=== PATIENT | female | born 1950 | race African-American/Black ===

== ENCOUNTER 2018-07-04 09:07 | Outpatient (CLI) | payer MEDICARE ==
--- NOTE | 2018-07-20 10:06 | MMO ---
Bilateral MAMMO Bilat Screen [facility]. CLINICAL HISTORY: Patient is 68 years old and is seen for screening. The patient has no family history of breast cancer. The patient has a history of malignant (generic) in the left breast at age 51. VIEWS: The views performed were: bilateral craniocaudal with tomosynthesis and bilateral mediolateral oblique with tomosynthesis. FILMS COMPARED: The present examination has been compared to prior imaging studies performed at [facility] on 03/15/2001 and 05/25/2008, and at [facility] on 12/04/2015. MAMMOGRAM FINDINGS: There are scattered fibroglandular densities. There are stable benign appearing calcifications seen in both breasts. There are also vascular calcifications. There are no suspicious masses, suspicious calcifications, or new areas of architectural distortion. IMPRESSION: THERE IS NO MAMMOGRAPHIC EVIDENCE OF MALIGNANCY. A ROUTINE FOLLOW-UP MAMMOGRAM IN 1 YEAR IS RECOMMENDED. THE RESULTS OF THIS EXAM WERE SENT TO THE PATIENT. ACR BI-RADS Category 2 - Benign finding MAMMOGRAPHY NOTE: 1. A negative mammogram report should not delay a biopsy if a dominant of clinically suspicious mass is present. 2. Approximately 10% to 15% of breast cancers are not detected by mammography. 3. Adenosis and dense breasts may obscure an underlying neoplasm.
== END 2018-07-04 09:08 | disposition home or self-care (01) ==
LOC: BICMAMMO 09:07
PROVIDERS: ATTEND Internal Medicine
DX: Z12.31 Encounter for screening mammogram for malignant neoplasm of breast (principal); Z85.3 Personal history of malignant neoplasm of breast
CPT/HCPCS: 77063; 77067

== ENCOUNTER 2018-12-06 10:02 | Outpatient (CLI) | payer MEDICARE ==
--- NOTE | 2018-12-06 11:20 | BD ---
DEXA DENSITOMETRY: INDICATIONS: Postmenopausal screening. FINDINGS: LUMBAR SPINE BMD (g/cm2) T-SCORE L1 1.117 1.2 L2 1.047 0.2 L3 1.206 1.1 L4 1.291 2.1 TOTAL 1.161 1.0 FEMORAL NECK 0.746 -0.9 TOTAL 1.046 0.9 IMPRESSION: The bone mineral density of the lumbar spine and femoral neck are both within the normal range. POS: SYDNEE
== END 2018-12-06 10:03 | disposition home or self-care (01) ==
LOC: BICMAMMO 10:02
PROVIDERS: ATTEND Internal Medicine
DX: Z13.820 Encounter for screening for osteoporosis (principal); Z78.0 Asymptomatic menopausal state
CPT/HCPCS: 77080

== ENCOUNTER 2019-04-14 09:04 | Outpatient (CLI) | payer MEDICARE, MEDICAID ==
--- NOTE | 2019-04-14 09:27 | RAD ---
FIVE VIEWS CERVICAL SPINE: HISTORY: Cervical spinal stenosis. Neck pain. FINDINGS: On the AP projection, there appears to be calcification of the left and right carotid artery. There i s suggestion of right carotid endarterectomy change. No malalignment. Suboptimal evaluation of the odontoid process and the lateral masses of C1 and C2 on the open mouth p rojection. Predental space is normal. There is no prevertebral soft tissue swelling. In the neutral position, th ere is moderate degenerative disc disease at C4-C5, C5-C6 and C6-C7. Loss of disc space height and osteophyte formation are identified. Limited evaluation of the cervicothoracic junction. There may be moderate. Change. Cervical spine vertebral body heights are maintained. No fracture. Straightening of normal cervical lordosis. Spondylolisthesis: C2-C3: Less than 1 mm of retrolisthesis of C3 upon C4 in the neutral position. Retrolisthesis resolve s upon extension and flexion. C3-C4: 1 mm of retrolisthesis of C3 upon C4 in the neutral position. Upon extension and flexion, retr olisthesis resolves. IMPRESSION: Degenerative changes of the cervical spine as above. Transcribed Date/Time: 04/14/2019 9:49 AM
--- NOTE | 2019-04-14 10:17 | MRI ---
MRI of thecervical spine: 04/14/2019 COMPARISON:None available HISTORY:Cervical stenosis, neck pain TECHNIQUE: Multiplanar multisequence MR imaging of thecervical spine without contrast Findings:The sagittal STIR imaging is limited by motion and demonstrates no focal area of osseous mar row edema. The sagittal T1 and T2-weighted imaging is limited by motion as well. There is no significant anterol isthesis or retrolisthesis noted within the cervical spine. No prevertebral soft tissue abnormality. The cervicothoracic and craniocervical junctions appear intact. Axial imaging is limited by motion, limiting detailed assessment for central canal and/or neural fora giovani stenosis. C2-3: No significant central canal or neural foraminal stenosis C3-4: There is a small annular tear in the right paracentral region. There is disc bulge with a small associated right paracentral disc protrusion partially effacing the ventral thecal sac and leading to a mild degree of central canal stenosis. No significant neural foraminal stenosis. C4-5: There is disc space narrowing with disc desiccation, anterior osteophyte formation, and mild di sc bulge. This partially effaces the ventral thecal sac and leads to a mild degree of central canal stenosis. Facet and uncovertebral osteophyte formation on the left causes at least mild left neural f oraminal stenosis. C5-6: There is disc space narrowing and disc desiccation with disc bulge and mild central canal steno sis. Bilateral facet and uncovertebral osteophyte formation noted, left greater than right. There is a questionable small foraminal disc protrusion with associated osteophyte on the left. However, a degree of this may be artifactual in nature on the basis of motion. Mild right and moderate left neural foraminal stenosis suspected. C6-7: There is disc space narrowing with disc desiccation and disc bulge causing mild central canal s tenosis. Facet and uncovertebral osteophyte formation as well as disc bulge causes a mild to moderate degree of bilateral neural foraminal stenosis, left greater than right. C7-T1: There is disc space narrowing with disc desiccation and disc bulge causing a mild degree of ce ntral canal stenosis. Disc bulge as well as facet and uncovertebral osteophyte formation leads to severe bilateral neural foraminal stenosis. No focal area of abnormal signal intensity is identified within the cervical cord. IMPRESSION:Motion limited examination demonstrating multilevel cervical spine degenerative change as described above. Most significant finding on this examination appears to be bilateral neural foraminal stenosis at the C7-T1 level.
== END 2019-04-14 09:05 | disposition home or self-care (01) ==
LOC: TBSIIMAG 09:04
PROVIDERS: ATTEND Neurological Surgery
DX: M48.02 Spinal stenosis, cervical region (principal); M54.2 Cervicalgia; M47.812 Spondylosis without myelopathy or radiculopathy, cervical region; M48.03 Spinal stenosis, cervicothoracic region
CPT/HCPCS: 72050; 72141

== ENCOUNTER 2019-06-15 12:28 | Outpatient (CLI) | payer MEDICARE, MEDICAID ==
[~2019-06-15 12:28] MED LIST: Iopamidol 370 76% 100 ML VIAL ONE
--- NOTE | 2019-06-15 13:37 | CT ---
Exam: CT angiogram of the neck HISTORY: Cervical stenosis noted on previous MRI. Cervical radicular pain TECHNIQUE: CT angiogram the neck is performed in the axial plane. Three-dimensional reformatted image s are submitted for interpretation FINDINGS: Visualized brain parenchyma and orbits have appropriate attenuation Adequate aeration visualized paranasal sinuses and mastoid air cells Mild fullness of the nasopharynx. No obvious masses in the oral cavity. Midline fatty raphae of the t ongue is preserved. There is mild fullness of the level of the lingual tonsils. Asymmetric soft tissue attenuation at the level of the false vocal cords with questionable masslike appearance measur ing 1.2 x 1.9 cm. There is associated narrowing of the airway. Salivary glands: Symmetric attenuation of the parotid glands. Surgically absent right submandibular g land. Appropriate attenuation of the left subarticular Thyroid gland: Incompletely evaluated 1.3 x 1.4 cm right thyroid lobe hypodensity Lymphadenopathy: No evidence of lymphadenopathy in the neck. Cervical spine: Vertebral body heights are maintained. There is no fracture. C2-C3: No significant central canal stenosis or significant neural foraminal narrowing C3-C4: No significant central canal stenosis or significant neural foraminal narrowing C4-C5: Anterior osteophyte formation. Broad-based discussed by complex with mild to moderate central canal stenosis. Moderate bilateral neural foraminal narrowing. C5-C6: Broad-based disc osteophyte complex with mild central canal stenosis. Moderate bilateral neura l foraminal narrowing due to uncovertebral hypertrophy C6-C7: No high-grade central canal stenosis. Moderate bilateral neural foraminal narrowing due to unc overtebral hypertrophy C7-T1: No high-grade central canal stenosis. Moderate to severe bilateral neural foraminal narrowing due to uncovertebral hypertrophy CT ANGIOGRAM: There is atherosclerosis of the visualized thoracic aorta Right carotid: There is appropriate enhancement and luminal diameter the origin of the right carotid artery. There is calcified plaque in the innominate artery without significant stenosis. There is appropriate enhancement and luminal diameter the common carotid artery. There is calcified plaque wit hout significant stenosis of the carotid bifurcation. There is appropriate enhancement and luminal diameter of the internal carotid artery. Left carotid: Appropriate enhancement and luminal diameter the origin of the left carotid artery. Lef t common carotid artery has appropriate enhancement and luminal diameter. There is calcified plaque with mild narrowing of the left carotid bifurcation. There is appropriate enhancement and luminal janna meter of the internal carotid artery. Bilateral subclavian arteries are patent. There is appropriate enhancement and luminal diameter of the cervical vertebral arteries. Right verte bral artery is dominant. Note, the left vertebral artery originates directly from the aortic arch IMPRESSION: 1. No evidence of significant stenosis based upon NASCET criteria. Calcified plaque in bilateral zaragoza tid bifurcations. 2. Soft tissue fullness at the level of the false vocal cords. Additional soft tissue fullness is not ed at the lingual tonsils and nasopharynx. Direct visualization is recommended CODE T Transcribed Date/Time: 06/15/2019 1:43 PM
== END 2019-06-15 12:29 | disposition home or self-care (01) ==
LOC: TBSIIMAG 12:28
PROVIDERS: ATTEND Surgery
DX: M54.12 Radiculopathy, cervical region (principal); I65.23 Occlusion and stenosis of bilateral carotid arteries
CPT/HCPCS: 70498; 82565; Q9967

== ENCOUNTER 2020-02-28 10:40 | Outpatient (CLI) | payer MEDICARE, MEDICAID ==
--- NOTE | 2020-02-28 13:18 | MMO ---
Bilateral MAMMO Bilat Screen [facility]. CLINICAL HISTORY: Patient is 69 years old and is seen for screening. The patient has no family history of breast cancer. The patient has a history of malignant (generic) in the left breast at age 51. VIEWS: The views performed were: bilateral craniocaudal with tomosynthesis and bilateral mediolateral oblique with tomosynthesis. FILMS COMPARED: The present examination has been compared to prior imaging studies performed at [facility] on 03/15/2001, 05/25/2008 and 07/04/2018, and at [facility] on 12/04/2015. This study has been interpreted with the assistance of computer-aided detection. MAMMOGRAM FINDINGS: There are scattered fibroglandular densities. Benign calcifications are noted bilaterally. There are stable left post-operative changes. There are no suspicious masses, suspicious calcifications, or new areas of architectural distortion. IMPRESSION: THERE IS NO MAMMOGRAPHIC EVIDENCE OF MALIGNANCY. A ROUTINE FOLLOW-UP MAMMOGRAM IN 1 YEAR IS RECOMMENDED. THE RESULTS OF THIS EXAM WERE SENT TO THE PATIENT. ACR BI-RADS Category 2 - Benign finding MAMMOGRAPHY NOTE: 1. A negative mammogram report should not delay a biopsy if a dominant of clinically suspicious mass is present. 2. Approximately 10% to 15% of breast cancers are not detected by mammography. 3. Adenosis and dense breasts may obscure an underlying neoplasm. Reported by: DYLON ROJAS MD Electonically Signed: [id number]
== END 2020-02-28 10:41 | disposition home or self-care (01) ==
LOC: BICMAMMO 10:40
PROVIDERS: ATTEND Nurse Practitioner Adult Health
DX: Z12.31 Encounter for screening mammogram for malignant neoplasm of breast (principal); Z85.3 Personal history of malignant neoplasm of breast
CPT/HCPCS: 77063; 77067

== ENCOUNTER 2020-02-28 11:22 | Outpatient (CLI) | payer MEDICARE, MEDICAID ==
--- NOTE | 2020-02-28 11:45 | CT ---
CT pulmonary lung scan without IV contrast INDICATION: Lung cancer screening protocol; current smoker of 30+ years; less than 1 pack per daypers onal history of smoking COMPARISON: None FINDINGS: LUNGS: Nodules\mass: No suspicious nodule demonstrated. Emphysema: [id number] scattered centrilobular emphysema Additional findings: There are coronary artery and thoracic aortic calcifications. There are postsurg ical change involving the left breast and left axilla. Mediastinum: No lymphadenopathy. Upper abdomen: There is a 1.6 cm cyst within the right hepatic lobe. Osseous structures: There is scattered degenerative and osteoarthritic change present.. IMPRESSION: Lung-RADS Category 1: Negative- Continue annual screening with LDCT in 12 months. Category S: None. Category C: Not applicable.
== END 2020-02-28 11:23 | disposition home or self-care (01) ==
LOC: BICCT 11:22
PROVIDERS: ATTEND Nurse Practitioner Adult Health
DX: Z12.2 Encounter for screening for malignant neoplasm of respiratory organs (principal); F17.210 Nicotine dependence, cigarettes, uncomplicated
CPT/HCPCS: G0297

== ENCOUNTER 2020-04-26 12:34 | Outpatient (CLI) | payer MEDICARE, MEDICAID ==
[2020-04-26 16:44] LABS: Hemoglobin 14.6 g/dL (12.0-15.5); Mean Corpuscular Hemoglobin 30.6 pg (27.0-33.0); Mean Corpuscular Volume 92.9 fl (81.6-98.3); Mean Platelet Volume 9.8 fl (7.4-10.4); Platelet Count 273 10x3/uL (150-450); RBC Distribution Width 13.4 % (11.5-14.5); Red Blood Cell (RBC) Count 4.77 10x6/uL (3.90-5.03); White Blood Cell (WBC) Count 4.6 10x3/uL (3.5-10.5)
[2020-04-26 17:10] LABS: INR-International Normal Ratio 0.9; PTT 27.9 sec (22.0-33.0); Prothrombin Time 9.8 sec (9.5-12.1)
[2020-04-26 17:13] LABS: Anion Gap 9 mmol/L (10-20); BUN (Urea Nitrogen) 10 mg/dL (9.8-20.1); Calc. Creatinine Clearance 0 mL/min (70-130); Calcium 9.5 mg/dL (7.8-10.44); Carbon Dioxide 29 mmol/L (23-31); Chloride 105 mmol/L (98-107); Glucose 107 mg/dL (80-115); Potassium 4.1 mmol/L (3.5-5.1); Sodium 139 mmol/L (136-145)
[2020-04-27 01:47] LABS: SARS-CoV-2 PCR by NAA Not Detected (NotDetected)
== END 2020-04-26 12:35 | disposition home or self-care (01) ==
LOC: LABBT 12:34
PROVIDERS: ATTEND Surgery
DX: Z01.818 Encounter for other preprocedural examination (principal); M54.12 Radiculopathy, cervical region; M48.02 Spinal stenosis, cervical region; Z20.822 Contact with and (suspected) exposure to COVID-19
CPT/HCPCS: 80048; 85027; 85610; 85730; 86850; 86900; 86901; U0003; U0005; 87635; 93005; 93010

== ENCOUNTER 2020-05-01 05:51 | Day surgery (SDC) | payer MEDICARE, MEDICAID ==
[2020-04-30 09:14] VITALS: BMI 34.0
[2020-05-01] MEDS ORDERED: Fentanyl 100 MCG/2 ML VIAL ONE ×5 (06:09→14:18)
[2020-05-01] MEDS ORDERED: Ketamine 50 MG/ML (10ML VIAL) ONE (06:09)
[2020-05-01] MEDS ORDERED: Dexmedetomidine 200 MCG/2 ML VIAL ONE (06:10)
[2020-05-01] MEDS ORDERED: Thrombin 5000 UNITS/5 ML VIAL ONE (06:34)
[2020-05-01] MEDS ORDERED: Levofloxacin 500 mg/D5W 100 ml Premix Bag ONE (07:29)
[2020-05-01] MEDS ORDERED: Clindamycin/D5W 900 mg/50 ml Premix Bag ONE (07:29)
[2020-05-01] MEDS ORDERED: Midazolam HCl 2 mg/2 ml Vial ONE (07:34)
[2020-05-01] MEDS ORDERED: Ondansetron PF 4 MG/2 ML Vial ONE (07:56)
[2020-05-01] MEDS ORDERED: Rocuronium Bromide 10 MG/ML (10ML VIAL) ONE (07:56)
[2020-05-01] MEDS ORDERED: Dexamethasone 20 MG/5 ML VIAL ONE (07:56)
[2020-05-01] MEDS ORDERED: ePHEDrine 50 MG/ML VIAL ONE (07:56)
[2020-05-01] MEDS ORDERED: Lidocaine 1% PF 5 ML VIAL ONE (07:56)
[2020-05-01] MEDS ORDERED: Glycopyrrolate 0.2 MG/ML 5 ML SYRINGE ONE (07:56)
[2020-05-01] MEDS ORDERED: PROPOFOL 200 MG/20 ML VIAL ONE (07:56)
[2020-05-01] MEDS ORDERED: Milk Of Magnesia 30 ML UDCUP PO PRN (10:05)
[2020-05-01] MEDS ORDERED: tiZANidine HCl 4 MG TAB PO PRN (10:05)
[2020-05-01] MEDS ORDERED: Mag-Al 1200 mg/1200 mg/30 ML UDCUP PO PRN (10:05)
[2020-05-01] MEDS ORDERED: Bisacodyl 10 MG SUPP PR PRN (10:05)
[2020-05-01] MEDS ORDERED: Acetaminophen 325 MG TAB PO PRN (10:05)
[2020-05-01] MEDS ORDERED: traMADol HCl 50 MG TAB PO PRN (10:05)
[2020-05-01] MEDS ORDERED: hydrALAZINE 20 MG/ML VIAL SLOW IVP PRN (10:08)
[2020-05-01] MEDS ORDERED: hydrALAZINE 20 MG/ML VIAL ONE (10:31)
[2020-05-01] MEDS: Sodium Chloride 0.9% 1,000 ML IV SCH ×2 (15:41→23:44)
[2020-05-01] MEDS: HYDROcodone/Acetaminophen 7.5/325 mg Tablet PO PRN (15:41)
[2020-05-01] MEDS ORDERED: Clindamycin/D5W 900 MG in Premix Bag 1 BAG IVPB SCH (16:00)
[2020-05-01] MEDS: Morphine 2 MG/ML VIAL SLOW IVP PRN (16:01)
[2020-05-01] MEDS: Acetaminophen/Codeine 30-300mg Tablet PO PRN (20:59)
[2020-05-01] MEDS: Clindamycin/D5W 900 MG in Premix Bag 1 BAG IVPB SCH (23:43)
[2020-05-02] MEDS: HYDROcodone/Acetaminophen 7.5/325 mg Tablet PO PRN ×2 (04:10→10:53)
[2020-05-02] MEDS: Clindamycin/D5W 900 MG in Premix Bag 1 BAG IVPB SCH (08:07)
[2020-05-02] MEDS: Acetaminophen/Codeine 30-300mg Tablet PO PRN (08:08)
[2020-05-02] MEDS ORDERED: Rosuvastatin 20 MG TAB PO SCH (09:00)
[2020-05-02] MEDS ORDERED: FLU VACC QS2020-21(65YR UP)/PF 240 MCG/0.7 ML SYRINGE IM ONE (09:00)
[2020-05-02] MEDS ORDERED: Ezetimibe 10 MG TAB PO SCH (09:00)
[2020-05-02] MEDS ORDERED: Lisinopril 20 MG TAB PO SCH (09:00)
[2020-05-02 11:24] VITALS: BP 161/92; TEMP 98.2
[2020-05-02] MEDS: Morphine 2 MG/ML VIAL SLOW IVP PRN (12:28)
[2020-05-02] MEDS: Sodium Chloride 0.9% 1,000 ML IV SCH (15:01)
== END 2020-05-02 13:04 | disposition home or self-care (01) ==
LOC: SDC 05:51 → SURG B 10:05 → SDC 05-02 13:04
PROVIDERS: ATTEND Surgery
PROC: 0RG10A0 Fusion of Cervical Vertebral Joint with Interbody Fusion Device, Anterior Approach, Anterior Column, Open Approach (ICD-10-PCS; principal; 2020-05-01)
PROC: 0RG40A0 Fusion of Cervicothoracic Vertebral Joint with Interbody Fusion Device, Anterior Approach, Anterior Column, Open Approach (ICD-10-PCS; 2020-05-01)
PROC: 0RT30ZZ Resection of Cervical Vertebral Disc, Open Approach (ICD-10-PCS; 2020-05-01)
PROC: 0RT50ZZ Resection of Cervicothoracic Vertebral Disc, Open Approach (ICD-10-PCS; 2020-05-01)
DX: M48.02 Spinal stenosis, cervical region (principal); M54.12 Radiculopathy, cervical region; I10 Essential (primary) hypertension; E78.5 Hyperlipidemia, unspecified; Z79.899 Other long term (current) drug therapy
CPT/HCPCS: 20930; 20936; 22551; 22552; 22853 ×2; 76000; 86850; 86900; 86901; C1713 ×4; C1776; J2270 ×2; 36415; J0360; J0690; J1100; J1956; J2250; J2405; J2704; J3010; J3490; L0174

== ENCOUNTER 2020-06-18 09:04 | Outpatient (CLI) | payer MEDICARE, MEDICAID | END 2020-06-18 09:05 | disposition home or self-care (01) | LOC: TBSIIMAG 09:04 | PROVIDERS: ATTEND Physician Assistant | DX: M50.10 Cervical disc disorder with radiculopathy, unspecified cervical region (principal); M48.02 Spinal stenosis, cervical region; M47.22 Other spondylosis with radiculopathy, cervical region; Z98.1 Arthrodesis status | CPT/HCPCS: 72040 ==

== ENCOUNTER 2021-02-28 09:15 | Outpatient (CLI) | payer MEDICARE, MEDICAID | END 2021-02-28 09:16 | disposition home or self-care (01) | LOC: BICMAMMO 09:15 | PROVIDERS: ATTEND Family Medicine | DX: Z12.31 Encounter for screening mammogram for malignant neoplasm of breast (principal); Z13.820 Encounter for screening for osteoporosis; Z78.0 Asymptomatic menopausal state; Z98.890 Other specified postprocedural states; Z85.3 Personal history of malignant neoplasm of breast | CPT/HCPCS: 77063; 77067; 77080 ==

== ENCOUNTER 2021-09-27 18:06 | Emergency (ER) | payer OTHER ==
[~2021-09-27 18:06] MED LIST changes: -Iopamidol 370 76% 100 ML VIAL ONE; +Iopamidol-370 76% 500 ML 1 ML ONE
[2021-09-27 19:04] LABS: Hemoglobin 15.2 g/dL (12.0-16.0); Mean Corpuscular HGB CONC 33.4 g/dL (32.0-36.0); Mean Corpuscular Hemoglobin 31.1 pg (27.0-31.0); Mean Corpuscular Volume 93.1 fL (78.0-98.0); Mean Platelet Volume 7.1 fL (7.4-10.4); Platelet Count 181 thou/uL (130-400); RBC Distribution Width 12.8 % (11.5-14.5); Red Blood Cell (RBC) Count 4.88 mill/uL (4.20-5.40); White Blood Cell (WBC) Count 4.3 thou/uL (4.8-10.8)
[2021-09-27 19:26] LABS: ALT (SGPT) 51 U/L (8-55); AST (SGOT) 73 U/L (5-34); Albumin 4.3 g/dL (3.4-4.8); Alkaline Phosphatase 78 U/L (40-110); Anion Gap 16 mmol/L (10-20); BUN (Urea Nitrogen) 13 mg/dL (9.8-20.1); Band 3 % (5-11); Bilirubin, Total 0.5 mg/dL (0.2-1.2); CK (CPK) 318 U/L (29-168); Calc. Creatinine Clearance 0 mL/min (70-130); Calcium 9.2 mg/dL (7.8-10.44); Carbon Dioxide 22 mmol/L (23-31); Chloride 99 mmol/L (98-107); Estimated GFR 58; Globulin 3.8 g/dL (2.4-3.5); Glucose 98 mg/dL (80-115); Lymphocytes 12 % (21-51); MDiff Complete? YES; Monocytes 15 % (0-10); Neutrophil 58 % (42-75); Platelet Morphology Comment Appears Adequate; Polychromasia SLIGHT = 2-3 cells (100X) (0-2/hpf); Potassium 3.8 mmol/L (3.5-5.1); Protein, Total 8.1 g/dL (5.8-8.1); Reactive Lymphocytes 12 % (0-10); Sodium 133 mmol/L (136-145)
[2021-09-27] MEDS ORDERED: Acetaminophen 500 MG TAB ONE (19:40)
[2021-09-27 23:28] LABS: SARS-CoV-2 NAA Rapid Test DETECTED (NotDetected)
== END 2021-09-27 22:30 | disposition home or self-care (01) ==
LOC: ERS 18:06
DX: U07.1 COVID-19 (principal); K76.89 Other specified diseases of liver; I11.9 Hypertensive heart disease without heart failure; E78.00 Pure hypercholesterolemia, unspecified; F17.210 Nicotine dependence, cigarettes, uncomplicated; Z79.899 Other long term (current) drug therapy
CPT/HCPCS: 71045; 71275; 80053; 82550; 84484; 85025; 85379; 93005; 93971; 94760; U0002; Q9967

== ENCOUNTER 2021-10-08 12:00 | Emergency (ER) | payer OTHER | END 2021-10-08 12:43 | disposition home or self-care (01) | LOC: ERS 12:00 | DX: J18.9 Pneumonia, unspecified organism (principal); I10 Essential (primary) hypertension; E78.00 Pure hypercholesterolemia, unspecified; F17.210 Nicotine dependence, cigarettes, uncomplicated; Z85.3 Personal history of malignant neoplasm of breast | CPT/HCPCS: 71045 ==

== ENCOUNTER 2022-03-19 09:23 | Outpatient (CLI) | payer OTHER, MEDICAID | END 2022-03-19 09:24 | disposition home or self-care (01) | LOC: BICMAMMO 09:23 | PROVIDERS: ATTEND Family Medicine | DX: Z12.31 Encounter for screening mammogram for malignant neoplasm of breast (principal); Z98.890 Other specified postprocedural states; Z85.3 Personal history of malignant neoplasm of breast | CPT/HCPCS: 77063; 77067 ==

== ENCOUNTER 2022-06-17 08:32 | Outpatient (CLI) | payer OTHER ==
[2022-06-17 10:34] LABS: #Eosinphils 0.1 10x3/uL (0.0-0.5); #Monocytes 0.4 10x3/uL (0.0-1.1); #Neutrophils 1.9 10x3/uL (1.5-8.4); %Basophils 0.9 % (0.0-2.0); %Eosinophils 1.5 % (0.0-6.0); %Lymphocytes 48.1 % (18.0-47.0); %Monocytes 8.4 % (0.0-10.0); %Neutrophils 40.7 % (40.0-75.0); Hemoglobin 14.7 g/dL (12.0-15.5); Mean Corpuscular HGB CONC 33.6 g/dL (32.0-36.0); Mean Corpuscular Hemoglobin 30.4 pg (27.0-33.0); Mean Corpuscular Volume 90.5 fl (81.6-98.3); Mean Platelet Volume 9.3 fl (7.4-10.4); Platelet Count 263 10x3/uL (150-450); RBC Distribution Width 14.2 % (11.5-14.5); Red Blood Cell (RBC) Count 4.84 10x6/uL (3.90-5.03); White Blood Cell (WBC) Count 4.6 10x3/uL (3.5-10.5)
== END 2022-06-17 08:33 | disposition home or self-care (01) ==
LOC: LABBT 08:32
PROVIDERS: ATTEND Orthopaedic Surgery Hand Surgery
DX: Z01.818 Encounter for other preprocedural examination (principal); G56.01 Carpal tunnel syndrome, right upper limb
CPT/HCPCS: 85025; 93005; 93010

== ENCOUNTER 2022-06-19 05:35 | Day surgery (SDC) | payer OTHER, MEDICAID ==
[2022-06-17 09:16] VITALS: BMI 34.0
[2022-06-19] MEDS ORDERED: Bacitracin Zinc Ointment 30 gm TUBE ONE (06:22)
[2022-06-19] MEDS ORDERED: Bupivacaine PF 0.5% 30 ML VIAL ONE (06:22)
[2022-06-19] MEDS ORDERED: fentaNYL PF 100 MCG/2 ML SYRINGE ONE (06:43)
[2022-06-19] MEDS ORDERED: Dexmedetomidine 200 MCG/2 ML VIAL ONE (06:44)
[2022-06-19] MEDS ORDERED: Sodium Chloride 0.9% 100 ML ONE (07:00)
[2022-06-19] MEDS ORDERED: CEFAZOLIN 2 GM VIAL ONE (07:00)
[2022-06-19] MEDS ORDERED: PROPOFOL 200 MG/20 ML VIAL ONE (07:18)
[2022-06-19] MEDS ORDERED: Dexamethasone 20 MG/5 ML VIAL ONE (07:18)
[2022-06-19] MEDS ORDERED: Ondansetron PF 4 MG/2 ML Vial ONE (07:18)
[2022-06-19] MEDS ORDERED: Ketorolac Tromethamine 30 MG/ML VIAL ONE (09:05)
[2022-06-19] MEDS ORDERED: Acetaminophen 500 MG TAB ONE (10:11)
== END 2022-06-19 11:50 | disposition home or self-care (01) ==
LOC: SDC 05:35
PROVIDERS: ATTEND Orthopaedic Surgery Hand Surgery
PROC: 01N50ZZ Release Median Nerve, Open Approach (ICD-10-PCS; principal; 2022-06-19)
PROC: 01N40ZZ Release Ulnar Nerve, Open Approach (ICD-10-PCS; 2022-06-19)
DX: G56.21 Lesion of ulnar nerve, right upper limb (principal); G56.03 Carpal tunnel syndrome, bilateral upper limbs; I10 Essential (primary) hypertension; Z85.3 Personal history of malignant neoplasm of breast; Z87.891 Personal history of nicotine dependence; Z79.899 Other long term (current) drug therapy; Z88.0 Allergy status to penicillin; Z98.1 Arthrodesis status
CPT/HCPCS: J1100; J1885; J2405; J2704; J3490; S0020

== ENCOUNTER 2022-06-23 10:12 | Emergency (ER) | payer OTHER, MEDICAID ==
[2022-06-23 11:03] LABS: #Monocytes 0.8 thou/uL (0.11-0.59); #Neutrophils 4.8 thou/uL (1.40-6.50); %Basophils 0.3 % (0.0-1.0); %Eosinophils 0.2 % (0.0-10.0); %Lymphocytes 35.6 % (21.0-51.0); %Neutrophils 53.9 % (42.0-75.0); Mean Corpuscular HGB CONC 33.6 g/dL (32.0-36.0); Mean Corpuscular Hemoglobin 30.1 pg (27.0-31.0); Mean Corpuscular Volume 89.6 fl (78.0-98.0); Mean Platelet Volume 9.1 fL (7.4-10.4); Platelet Count 270 10x3/uL (130-400); RBC Distribution Width 14.1 % (11.5-14.5); Red Blood Cell (RBC) Count 5.31 mill/uL (4.20-5.40); White Blood Cell (WBC) Count 8.9 10x3/uL (4.8-10.8)
[2022-06-23 11:31] LABS: ALT (SGPT) 47 U/L (8-55); AST (SGOT) 31 U/L (5-34); Albumin 4.3 g/dL (3.4-4.8); Alkaline Phosphatase 77 U/L (40-110); Anion Gap 16 mmol/L (10-20); BUN (Urea Nitrogen) 17 mg/dL (9.8-20.1); Bilirubin, Total 0.6 mg/dL (0.2-1.2); Calc. Creatinine Clearance 0 mL/min (70-130); Calcium 10.1 mg/dL (7.8-10.44); Carbon Dioxide 24 mmol/L (23-31); Chloride 96 mmol/L (98-107); Estimated GFR 63; Globulin 3.3 g/dL (2.4-3.5); Glucose 151 mg/dL (83-110); Potassium 3.8 mmol/L (3.5-5.1); Protein, Total 7.6 g/dL (5.8-8.1); Sodium 132 mmol/L (136-145)
== END 2022-06-23 12:25 | disposition home or self-care (01) ==
LOC: ERS 10:12
DX: M26.69 Other specified disorders of temporomandibular joint (principal); I10 Essential (primary) hypertension; E78.00 Pure hypercholesterolemia, unspecified; F17.210 Nicotine dependence, cigarettes, uncomplicated
CPT/HCPCS: 36415; 70450; 70486; 80053; 85025; 85652; 86140

== ENCOUNTER 2023-04-05 07:43 | Outpatient (CLI) | payer OTHER | END 2023-04-05 07:44 | disposition home or self-care (01) | LOC: BICMAMMO 07:43 | PROVIDERS: ATTEND Family Medicine | DX: Z12.31 Encounter for screening mammogram for malignant neoplasm of breast (principal); Z85.3 Personal history of malignant neoplasm of breast; Z98.890 Other specified postprocedural states | CPT/HCPCS: 77063; 77067 ==

== ENCOUNTER 2023-09-04 12:30 | Emergency (ER) | payer MEDICARE, MEDICAID ==
[2023-09-04 13:30] LABS: Influenza A by NAA Not Detected (NotDetected); Influenza B by NAA Not Detected (NotDetected); SARS-CoV-2 NAA Rapid Test DETECTED (NotDetected)
[2023-09-04] MEDS ORDERED: Acetaminophen 500 MG TAB ONE (14:14)
[2023-09-04] MEDS ORDERED: Dexamethasone 10 MG/ML VIAL ONE (14:14)
== END 2023-09-04 14:23 | disposition home or self-care (01) ==
LOC: ERS 12:30
DX: U07.1 COVID-19 (principal); I10 Essential (primary) hypertension; F17.210 Nicotine dependence, cigarettes, uncomplicated
CPT/HCPCS: 0240U; 71046; 99283; J1100

== ENCOUNTER 2024-09-15 21:09 | Emergency (ER) | payer OTHER, MEDICAID | END 2024-09-16 02:00 | disposition home or self-care (01) | LOC: ERS 21:09 | DX: M79.641 Pain in right hand (principal); I10 Essential (primary) hypertension; F17.210 Nicotine dependence, cigarettes, uncomplicated | CPT/HCPCS: 99283 ==

== ENCOUNTER 2024-11-29 07:31 | Outpatient (CLI) | payer OTHER, MEDICAID | END 2024-11-29 07:32 | disposition home or self-care (01) | LOC: BICCT 07:31 | PROVIDERS: ATTEND Family Medicine | DX: Z12.2 Encounter for screening for malignant neoplasm of respiratory organs (principal); F17.210 Nicotine dependence, cigarettes, uncomplicated | CPT/HCPCS: 71271 ==